=== PATIENT | female | born 1970 | race Asian ===

== ENCOUNTER 2019-10-03 21:21 | Emergency (ER) | payer OTHER ==
[~2019-10-03] VITALS: Ht 160 cm; Wt 49.9 kg
[~2019-10-03 21:21] MED LIST: ANTIVERT25 MG ORAL; ZOFRAN ODT4 MG ORAL
--- NOTE | 2019-10-03 21:37 | NUR ---
ED Nurse Note: Pt ambulated to ED from home c/o nosebleed x1hr. Pt was in the shower and noticed the blood, denies trauma or pain. Reports feeling mildly dizzy. VSS.
[2019-10-03 21:38] VITALS: BP 110/66
--- NOTE | 2019-10-03 22:36 | Emergency Room Report ---
History of Present Illness General Chief Complaint: Nosebleed Source: Patient Present Illness HPI This is a 49-year-old female with no past medical history. She presents with chief on the left nose bleeding. Onset today. She said there was a "pimple" in her left nose. It was there for a week. After the shower she popped it. Now is bleeding. No nausea no vomiting. No fever chills. Denies any other complaint. Allergies: Coded Allergies: No Known Allergies (Unverified , 04/02/15) Patient History Past Medical History: see triage record, old chart reviewed Past Surgical History: other Pertinent Family History: none Social History: Denies: smoking Last Menstrual Period: 09/2019 Now: No Immunizations: other Reviewed Nursing Documentation: PMH: Agreed; PSxH: Agreed Nursing Documentation-PMH Past Medical History: No Stated History Review of Systems Eye: Denies: eye pain, blurred vision ENT: Denies: ear pain, nose congestion, throat swelling Respiratory: Denies: cough, shortness of breath Cardiovascular: Denies: chest pain, palpitations Gastrointestinal: Denies: abdominal pain, diarrhea, nausea, vomiting Musculoskeletal: Denies: back pain, joint pain Skin: Denies: rash Neurological: Denies: headache, numbness Endocrine: Denies: increased thirst, increased urine Hematologic/Lymphatic: Denies: easy bruising All Other Systems: negative except mentioned in HPI Physical Exam Vital Signs Date Time Temp Pulse Resp B/P (MAP) Pulse Ox O2 Delivery O2 Flow Rate FiO2 10/03/19 21:28 98.4 65 16 110/66 (81) 96 Room Air Vitals normal Sp02 EP Interpretation: reviewed, normal General Appearance: well appearing, no apparent distress, alert Head: normocephalic, atraumatic Eyes: bilateral eye PERRL, bilateral eye EOMI ENT: hearing grossly normal, normal pharynx, other - Left Nares: Oozing of blood on the inferior aspect of the nose. There is a flap. Neck: full range of motion, supple, no meningismus Respiratory: chest non-tender, lungs clear, normal breath sounds Cardiovascular #1: regular rate, rhythm, no murmur Gastrointestinal: normal bowel sounds, non tender, no mass, no organomegaly, no bruit, non-distended Musculoskeletal: back normal, gait/station normal, normal range of motion Psychiatric: mood/affect normal Procedures Additional Procedure Procedure Narrative Procedure: Epistaxis control Indication: Epistaxis Description: I placed a 4.5 cm Rhino Rocket in the left naris. I inflated it. Patient tolerated seizure without any problem. Medical Decision Making Diagnostic Impression: Primary Impression: Epistaxis ER Course Patient presents with epistaxis. She probably had a nasal polyp that she popped. No evidence of any other trauma. Bleeding resolved. Will discharge home. Last Vital Signs Date Time Temp Pulse Resp B/P (MAP) Pulse Ox O2 Delivery O2 Flow Rate FiO2 10/03/19 21:38 98.4 16 110/66 96 Room Air 10/03/19 21:28 65 Status: improved Disposition: HOME, SELF-CARE Condition: Stable Referrals: [facility] (PCP) Patient Instructions: Nosebleed, [id number] Additional Instructions: Follow-up with your doctor in 2 to 3 days to take out the nasal packing. Do not pick your nose. Return if symptoms worsen. Wander Briseno MD Oct 03, 2019 22:36
[2019-10-03 23:00] VITALS: BP 110/66
--- NOTE | 2019-10-03 23:00 | NUR ---
ER DISCHARGE NOTE: Patient is cleared to be discharged per ERMD, pt is aox4, on room air, with stable vital signs. pt was given dc instructions, pt was able to verbalize understanding, pt id band removed without complications. pt is able to ambulate with steady gait. pt took all belongings.
[2019-10-04] MEDS ORDERED: IBUPROFEN600 MG ORAL (05:06)
== END 2019-10-03 23:00 | disposition home or self-care (01) ==
LOC: EMR 21:52
DX: R04.0 Epistaxis (principal)
CPT/HCPCS: 99283

== ENCOUNTER 2019-10-04 04:36 | Emergency (ER) | payer OTHER ==
[~2019-10-04] VITALS: Ht 160 cm; Wt 52.2 kg
[2019-10-04 04:54] VITALS: BP 138/72
--- NOTE | 2019-10-04 04:58 | Emergency Room Report ---
History of Present Illness General Chief Complaint: Headache Source: Patient Present Illness HPI Is a 49-year-old female with no significant past medical history. She presents with chief complaint of headache. I saw her earlier for left epistaxis. I placed a Rhino Rocket in it. Since she got home she said the headache from. No nausea no vomiting pain is throbbing. 9 out of 10. Unable to sleep. Denies any active bleeding. No other complaint. Allergies: Coded Allergies: No Known Allergies (Unverified , 04/02/15) Patient History Past Medical History: see triage record, old chart reviewed Past Surgical History: other Pertinent Family History: none Social History: Denies: smoking Now: No Immunizations: other Reviewed Nursing Documentation: PMH: Agreed; PSxH: Agreed Nursing Documentation-PMH Past Medical History: No Stated History Review of Systems Eye: Denies: eye pain, blurred vision ENT: Denies: ear pain, nose congestion, throat swelling Respiratory: Denies: cough, shortness of breath Cardiovascular: Denies: chest pain, palpitations Gastrointestinal: Denies: abdominal pain, diarrhea, nausea, vomiting Musculoskeletal: Denies: back pain, joint pain Skin: Denies: rash Neurological: Reports: headache; Denies: numbness Endocrine: Denies: increased thirst, increased urine Hematologic/Lymphatic: Denies: easy bruising All Other Systems: negative except mentioned in HPI Physical Exam Vital Signs Date Time Temp Pulse Resp B/P (MAP) Pulse Ox O2 Delivery O2 Flow Rate FiO2 10/04/19 04:45 98.8 89 18 138/72 (94) 98 Room Air Vitals normal Sp02 EP Interpretation: reviewed, normal General Appearance: well appearing, no apparent distress, alert Head: normocephalic, atraumatic Eyes: bilateral eye PERRL, bilateral eye EOMI ENT: hearing grossly normal, normal pharynx, other - Still scant amount of oozing in the left naris after i removed the Rhino Rocket. Neck: full range of motion, supple, no meningismus Respiratory: chest non-tender, lungs clear, normal breath sounds Cardiovascular #1: regular rate, rhythm, no murmur Gastrointestinal: normal bowel sounds, non tender, no mass, no organomegaly, no bruit, non-distended Musculoskeletal: back normal, gait/station normal, normal range of motion Psychiatric: mood/affect normal Medical Decision Making Diagnostic Impression: Primary Impression: Headache Qualified Codes: R51 - Headache Additional Impression: Left-sided nosebleed ER Course Patient presents with headache. This is probably secondary to the nasal balloon. She could not tolerate it. Remove the Rhino Rocket and then place Surgicel. Patient tolerated that much better. No active bleeding. Will discharge home. Last Vital Signs Date Time Temp Pulse Resp B/P (MAP) Pulse Ox O2 Delivery O2 Flow Rate FiO2 10/04/19 04:45 98.8 89 18 138/72 (94) 98 Room Air Status: improved Disposition: HOME, SELF-CARE Condition: Stable Scripts Ibuprofen* (MOTRIN*) 600 Mg Tablet 600 MG ORAL THREE TIMES A DAY, #30 TAB 0 Refills Prov: Wander Briseno MD 10/04/19 Referrals: [facility] (PCP) Patient Instructions: Sinus Headache Additional Instructions: Keep the packing in your nose for 2 days. Will fall out do not try to push it back in. Follow-up with your doctor in 7 days. Return if symptoms worsen. Wander Briseno MD Oct 04, 2019 04:58
[2019-10-04] MEDS ORDERED: Surgicel 4in x 8in TOPIC ONE (05:00)
[2019-10-04] MEDS ORDERED: IBUPROFEN600 MG ORAL (05:06)
[2019-10-04 05:15] VITALS: BP 138/72
== END 2019-10-04 05:15 | disposition home or self-care (01) ==
LOC: EMR 04:54
DX: R51 Headache (principal); R04.0 Epistaxis
CPT/HCPCS: 99282